=== PATIENT | female | born 1985 | race Hispanic/Latino ===

== ENCOUNTER 2016-10-28 05:39 | Inpatient (IN) | payer MEDICAID ==
[~2016-10-28] VITALS: Ht 149.9 cm; Wt 68.9 kg
[2016-10-28] MEDS ORDERED: Hemorrhage Kit, Post Partum XX ONE (06:10)
[2016-10-28] MEDS ORDERED: Ondansetron 2 mg/mL 2 mL Inj IVPUSH PRN (06:10)
[2016-10-28] MEDS ORDERED: Penicillin G K Inj 5,000,000 UNITS in Dextrose 5% Minibag Plus 100 ML IV ONE (06:10)
[2016-10-28] MEDS ORDERED: Oxytocin 30 Units/500 mL LR 30 UNITS in IV Premix 1 EACH IV PRN (06:10)
[2016-10-28] MEDS ORDERED: Carboprost 250 mCg/mL Inj IM PRN (06:10)
[2016-10-28] MEDS ORDERED: Oxytocin 10 Unit/mL Inj IM PRN (06:10)
[2016-10-28] MEDS ORDERED: Sodium Chloride LOK Flush 10 mL Syringe IVFLUSH PRN (06:10)
[2016-10-28] MEDS ORDERED: Methylergonovine 0.2 mg/mL Inj IM PRN (06:10)
[2016-10-28 06:32] LABS: Mean Corpuscular Hemoglobin 28.8 pg (27.0-35.0); Mean Corpuscular Volume 87.9 fL (81-100)
--- NOTE | 2016-10-28 07:23 | PCM.HPOB ---
Subjective Date of Service: Oct 28, 2016 Referring Provider: Admitting Physician: Roger Rojas MD Primary Care Physician: Nopcp Attending Physician: Roger Rojas MD Chief Complaint premature rupture of membranes History of Present History of Present Illness 31 yo at 35 weeks 1 day gestation [facility] with grossly ruptured membranes. Per nurse cervical examination she is 1 cm dilated, firm, and anterior. She is relaxing and breathing for pain management at this time. OB History: (2), Para (1), Term (1), Living (1) Past Medical History Obstetrical History: at 40 weeks January 2012 5lbs 12oz Hx Tobacco Use: No Genetic Screening/Counseling Genetic Screening/Counseling: Negative Review of Systems Constitutional: Y: Chills, Fever Eyes: Denies: Blurred Vision Cardiovascular: Denies: Chest Pain Respiratory: Denies: Cough Gastrointestinal: Denies: Nausea, Vomiting Neurological: Denies: Dizziness Medications Home medications vitamin Allergy Coded Allergies: No Known Allergies (Unverified , 10/28/16) Exam Vital Signs Stable, normal Constitutional: Well-developed, Well-nourished HEENT: Atraumatic Lungs: Clear to Auscultation, Normal Air Movement Heart: Regular Rate/Rhythm, No Murmurs/Rubs/Gallops Abdomen: Gravid, Soft, No tenderness Extremities: Warm, No Edema Neurological/Psychiatric: Alert, Oriented X3 Neuro: Grossly Neurologically Intact Labs/Diagnostics Labs WBC 5.2 Hgb 11.4 Hct 34.8 Plt 232 Ultra Sound On Oct 10, 2016 gave estimated weight of 2222g (67th percentile) with appropriate interval growth. Lab/Diagnostic Information GBS status unknown. HgA1c 6.1, 1 hour glucose abnormal (156). 3 hour glucose normal. Antibody screen negative, rubella and varicella immune, non reactive HIV and RPR. GC/CT negative, Quad screen negative, Hep C and HBsAg negative. Maternal Blood Type: O (positive) Hx Rho(D) Immune Globulin: No Antibody Screen: negative Group B Strep Results: Not done (35.1 weeks ) Previous Infant with GBS: Unknown Rubella: Immune OB Intrapartum Assessment/Plan Assessment 31 yo with gross premature rupture of membranes. GBS status unknown. HgA1c 6.1, 1 hour glucose abnormal (156). 3 hour glucose normal. Antibody screen negative, rubella and varicella immune, non reactive HIV and RPR. GC/CT negative, Quad screen negative, Hep C and HBsAg negative. Problems: (1) premature rupture of membranes Plan: 35 weeks 1 day gestation. Patient given betamethasone IM, this will be given again at 24 hours if she has not yet delivered. At that time we will continue with augmentation and induction of labor if necessary. Patient is being given penicillin due to GBS status unknown. Status: Acute ICD Code: O42.919 (2) Qualifiers: Weeks of gestation: 35 weeks Qualified Code: Z3A.35 - 35 weeks gestation of Status: Acute ICD Code: Z33.1 Pain Management: Patient does not desire an epidural however it is available if necessary also IV fentanyl as available. Encourage relaxation and breathing for patient. Pain Evaluation: Adequate Pain Control Intrapartum plan Betamethasone every 24 hours 2 IV penicillin Allow labor to progress on its own if necessary induction of labor after second dose of betamethasone. Post plan: Continue routine post care Attending Statement The patient was seen and examined together with Dr. Stinson and I agree with the history, exam and plan as outlined in the note above. JUNG STINSON DO Oct 28, 2016 06:54 Paola Fernandez MD Oct 29, 2016 22:33
[2016-10-28] MEDS ORDERED: PREN1TAB25 PO (07:33)
[2016-10-28] MEDS: Lactated Ringer's 1,000 ML IV PRN ×2 (07:35→16:00)
[2016-10-28] MEDS: Betameth Ace-Betam SodPhos 6 mg/mL 5 mL Inj IM SCH (08:44)
[2016-10-28] MEDS: Penicillin G K Inj 3,000,000 UNITS in IV Premix 1 EACH IV SCH ×2 (12:04→16:00)
[2016-10-28] MEDS: Ampicillin Inj 2,000 MG in 0.9% Sodium Chloride 100 ML IV SCH (20:30)
[2016-10-28] MEDS: Erythromycin Inj 250 MG in 0.9% Sodium Chloride 100 ML IV SCH (21:00)
[2016-10-29] MEDS: Ampicillin Inj 2,000 MG in 0.9% Sodium Chloride 100 ML IV SCH (02:25)
[2016-10-29] MEDS: Erythromycin Inj 250 MG in 0.9% Sodium Chloride 100 ML IV SCH (03:00)
[2016-10-29] MEDS ORDERED: Hemorrhage Kit, Post Partum XX ONE (03:35)
[2016-10-29] MEDS ORDERED: LANOlin HPA 7 Gm Ointment TOPICAL PRN (03:35)
[2016-10-29] MEDS ORDERED: Oxytocin 30 Units/500 mL LR 30 UNITS in IV Premix 1 EACH IV PRN (03:35)
[2016-10-29] MEDS ORDERED: Lactated Ringer's 1,000 ML IV SCH (03:35)
[2016-10-29] MEDS ORDERED: Benzocaine (Dermoplast) 20% 60 Gm Spray TOPICAL PRN (03:35)
[2016-10-29] MEDS ORDERED: oxyCODONE-Acetamin 5-325 mg Tablet PO PRN (03:40)
[2016-10-29] MEDS: Witch Hazel-Glycerin Pads TOPICAL PRN (04:10)
--- NOTE | 2016-10-29 05:14 | OP ---
[address] [address] OPERATIVE REPORT PATIENT: DAVIS DEL REAL : 1985 MR#: [id number] ADMIT: 10/28/2016 JOB ID: [id number] DATE OF SURGERY: 10/29/2016 PREOPERATIVE DIAGNOSIS(ES): 1. labor, intrauterine at 35 weeks and 2 days. 2. Premature rupture of membranes. 3. Group B streptococcus unknown. POSTOPERATIVE DIAGNOSIS(ES): 1. labor, intrauterine at 35 weeks and 2 days, status post spontaneous vaginal delivery. 2. Premature rupture of membranes. 3. Group B streptococcus unknown. PROCEDURE: Spontaneous vaginal delivery. SURGEON: Jeremy Caraballo MD. CURRICULUM DEVELOPMENT COORDINATOR: None. ESTIMATED BLOOD LOSS: 300 mL. PROCEDURE: This is a 31-year-old 2, now para 2, presented at 35 weeks and 1 day with premature rupture of membranes. Time of rupture October 28, 2016, at 5 a.m. Because patient less than 37 weeks of gestation a course of betamethasone was started. The patient received one dose of betamethasone on October 28, 2016, and the plan was to repeat another dose 24 hours later and to be induced 48 hours after the first dose of betamethasone. Antibiotic, broad spectrum, was started for expectant management. Then, patient progressed spontaneously in labor and found to be in active labor on October 29, 2016, at 2:34 a.m. Cervix was 6 cm. Five minutes later, she had an urge to push and she was completely dilated. The patient pushed effectively to deliver via spontaneous vaginal delivery over an intact perineum without epidural. Delivered a female infant in cephalic presentation in occiput anterior position with no nuchal cord. Shoulders delivered without difficulty. The infant was placed on the maternal abdomen. A delayed cord clamp was performed after 1 minute. Apgars at 1 minute were 9, and 5 minutes were 10. Purchasing Specialist was present in the room. The placenta was delivered spontaneously intact with three-vessel cord at 3:04. Time of delivery was 3 a.m. on October 29, 2016. After delivery of the placenta, oxytocin was started and fundal massage was performed, and uterus was firm. Examination of the perineum revealed a second-degree laceration that was repaired with 3-0 Vicryl in the usual manner and with local anesthesia. Infant weight 2467 g. The infant was admitted to the ICU for evaluation for prematurity. Mother is in stable condition and recovering in the delivery room. All instrument, needle and sponge counts were correct x2. IJeremy MD was present and performed the entire delivery. RUSSEL
[2016-10-29] MEDS: Betameth Ace-Betam SodPhos 6 mg/mL 5 mL Inj IM SCH (08:30)
[2016-10-29] MEDS: Ascorbic Acid 500 mg Tablet PO SCH ×2 (11:37→17:45)
[2016-10-30 06:13] LABS: Mean Corpuscular Hemoglobin 28.6 pg (27.0-35.0)
[2016-10-30] MEDS ORDERED: DOCU-41 PO (08:00)
[2016-10-30] MEDS ORDERED: IBUP-1827 PO (08:00)
[2016-10-30] MEDS ORDERED: Ascorbic Acid PO (08:00)
[2016-10-30] MEDS ORDERED: FERR-74 PO (08:00)
--- NOTE | 2016-10-30 08:42 | PCM.PNOBPP ---
Subjective Date of Service Oct 30, 2016 Post : Spontaneous Vaginal Delivery Subjective 31 yo at 35 weeks 1 day gestation presented to [facility] early in the morning of October 28 with grossly ruptured membranes. Betamethasone was started. Patient went into labor on her own. A female infant was born early the morning of October 29 via normal spontaneous vaginal delivery. Infant was taken to the special care nursery due to early gestational age. Mother has been up and about and is seen in the nursery this morning. She attempted to breast-feed and plans to continue to do so she is currently pumping and supplementing with NeoSure. Her pain is controlled with ibuprofen she is meeting post goals and, has no other concerns. Lochia: Normal Pain Management: PO pain meds Gastrointestinal: Good Appetite Postop Activity: Ambulating Independently Group B Strep Results: Not done (35.1 weeks ) Rubella: Immune Blood Type: O (positive) RH Type: Positive Labs Laboratory Tests 10/30/16 05:55: White Blood Count 8.8, Red Blood Count 3.91, Hemoglobin 11.2, Hematocrit 34.4, Mean Corpuscular Volume 88.0, Mean Corpuscular Hemoglobin 28.6, Mean Corpuscular Hemoglobin Concent 32.6, Red Cell Distribution Width 13.8, Platelet Count 208 Exam Vital Signs Vital Signs: VS reviewed, stable Exam Abdomen: Fundus firm, Abdomen non-tender : Voiding without difficulty Extremities: Edema 1+ Lungs: Clear to Auscultation, Normal Air Movement Heart: Regular Rate/Rhythm, No Murmurs/Rubs/Gallops General: Alert, Oriented X3 OB Post Assessment/Plan Assessment 31 yo at 35 weeks 1 day gestation delivered a female infant via normal spontaneous vaginal delivery. She is doing well meaning goals. Pain is well controlled with ibuprofen. Problems: (1) premature rupture of membranes Qualifiers: PROM onset of labor timing: onset of labor within 24 hours of rupture Qualified Code: O42.019 - premature rupture of membranes, onset of labor within 24 hours of rupture, unspecified trimester Plan: 35 weeks 1 day gestation. Patient given single dose betamethasone IM, Patient was given penicillin due to GBS status unknown. Status: Acute ICD Code: O42.919 (2) Qualifiers: Weeks of gestation: 35 weeks Qualified Code: Z3A.35 - 35 weeks gestation of Status: Acute ICD Code: Z33.1 Pain Management: Ibuprofen. Pain Evaluation: Adequate Pain Control Post plan: Continue routine post care, Discharge to [facility] status Attending Statement The patient was seen and examined together with Dr. Jung Stinson DO on 10/30/2016 and I agree with the history, exam and plan as outlined in the note above. JUNG STINSON DO Oct 30, 2016 08:42 Shavon Jordan MD Nov 11, 2016 07:57
--- NOTE | 2016-10-30 08:59 | PCM.DIOB ---
Obstetrical Disch Instruction Date of Service: Oct 30, 2016 Dates of Hospitalization Date of Hospital Admission Oct 28, 2016 at 05:44 Providers Admitting Physician: Roger Rojas MD Primary Care Physician: Karen Attending Physician: Roger Rojas MD Discharge Diagnosis Discharge Diagnosis 1. Normal Spontaneous Vaginal Delivery Post Operative diagnosis 1. Intrauterine at 35 weeks and 2 days. 2. . 3. Premature rupture of membranes. 4. Active labor. 5. Group B streptococcus unknown. Problems: (1) premature rupture of membranes Qualifiers: PROM onset of labor timing: onset of labor within 24 hours of rupture Qualified Code: O42.019 - premature rupture of membranes, onset of labor within 24 hours of rupture, unspecified trimester Plan: 35 weeks 1 day gestation. Patient given single dose betamethasone IM, Patient was given penicillin due to GBS status unknown. Status: Acute ICD Code: O42.919 (2) Qualifiers: Weeks of gestation: 35 weeks Qualified Code: Z3A.35 - 35 weeks gestation of Status: Acute ICD Code: Z33.1 Diet Discharge Diet: No restrictions Activity Discharge Activity-General: Pelvic Rest for 6 weeks, Balance rest and activity Additional Instructions Discharge Instructions Please take the iron and vitamin c together for your anemia. Continue to take your vitamin. You may have constipation so you have also been given a prescription for docusate to keep you regular. Be sure to follow up in 6 weeks at [facility]. Pelvic rest for 6 weeks (nothing per vagina including intercourse, tampons) You may discuss control options at this time If you have a fever greater than 100.4, please call [facility]. There is always someone special education bus driver to talk to. If you have an increase in bleeding, call [facility]. If you have a lot of bleeding suddenly, especially if you have symptoms of dizziness & weakness with it, get emergency help. When you see [facility] in two weeks, you will be informed of the results of all the labs. If you start experiencing extreme depression, especially if you feel that you are a danger to yourself or your family, seek emergency help. You have been through a lot -- BE SURE TO TAKE CARE OF YOURSELF. Follow Up Plan Follow-up Provider (F9): Arunakul,Nikorn R MD Follow-up appointment: Weeks (6) Call your provider for: Fever or Chills, Shortness of breath, Heavy vaginal bleeding, Excessive constipation, Vaginal discomfort, Red painful breasts JUNG STINSON DO Oct 30, 2016 08:59
[2016-10-30] MEDS: Witch Hazel-Glycerin Pads TOPICAL PRN (09:25)
[2016-10-30] MEDS: Ascorbic Acid 500 mg Tablet PO SCH (09:26)
--- NOTE | 2016-10-30 09:39 | PCM.DC.OB ---
Obstetrical Discharge Summary Date of Service Oct 30, 2016 Date of hospital admission Oct 28, 2016 at 05:44 Date of Discharge: Oct 30, 2016 Providers Admitting Physician: Roger Rojas MD Primary Care Physician: Karen Attending Physician: Roger Rojas MD Diagnosis at Time of Discharge 1. Normal Spontaneous Vaginal Delivery Problems: (1) premature rupture of membranes Qualifiers: PROM onset of labor timing: onset of labor within 24 hours of rupture Qualified Code: O42.019 - premature rupture of membranes, onset of labor within 24 hours of rupture, unspecified trimester Plan: 35 weeks 1 day gestation. Patient given single dose betamethasone IM, Patient was given penicillin due to GBS status unknown Status: Acute ICD Code: O42.919 (2) Qualifiers: Weeks of gestation: 35 weeks Qualified Code: Z3A.35 - 35 weeks gestation of Status: Acute ICD Code: Z33.1 Invasive procedures Normal Spontaneous Vaginal Delivery Date of Procedure: Oct 29, 2016 Pathology placenta for premature rupture of membranes Brief History and Physical: 31 yo at 35 weeks 1 day gestation presents to [facility] with grossly ruptured membranes. Per nurse cervical examination she is 1 cm dilated, firm, and anterior. She is relaxing and breathing for pain management at this time. Exam on day of discharge: vital signs stable and normal, well-nourished well- appearing, heart regular rate and rhythm no murmurs, lungs clear to auscultation bilaterally with good air movement. Abdomen soft, uterine fundus firm. +1 edema in bilateral lower extremities. Appropriate mood and affect. Hospital Course: 31 yo at 35 weeks 1 day gestation presented to [facility] early in the morning of October 28 with grossly ruptured membranes. Betamethasone was given. Patient went into labor on her own. A female infant was born early the morning of October 29 via normal spontaneous vaginal delivery. was taken to the special care nursery due to early gestational age. Mother is meeting goals. is doing well. Patient will be discharged to [facility] status in stable condition. ([Ascorbic Acid]) 500 MG TABLET 500 MG PO DAILY Take with Iron Prescribed by: JUNG STINSON DO Docusate Sodium (Colace) 100 Mg Capsule 100 MG PO DAILY PRN PRN For Constipation Prescribed by: JUNG R STINSON, DO Ferrous Sulfate (Feosol) 325 Mg Tablet 325 MG PO DAILY Take with Vitamin C Prescribed by: JUNG STINSON DO Ibuprofen (Ibuprofen) 600 Mg Tablet 600 MG PO Q6H PRN PRN For Mild Pain Prescribed by: JUNG STINSON DO Vit#96/Ferrous Fum/FA ( Tablet) 1 Each Tablet 1 EACH PO DAILY ( Reported) Last Taken: Unknown Dose on 10/26/16 Disposition Discharged to [facility] status Follow-up plan 6 weeks at [facility] Discharge Diet: No restrictions Discharge Activity-General: Pelvic Rest for 6 weeks, Balance rest and activity Patient instructions Please take the iron and vitamin c together for your anemia. Continue to take your vitamin. You may have constipation so you have also been given a prescription for docusate to keep you regular. Be sure to follow up in 6 weeks at [facility]. Pelvic rest for 6 weeks (nothing per vagina including intercourse, tampons) If you have a fever greater than 100.4, please call [facility]. There is always someone component prep operator to talk to. If you have an increase in bleeding, call [facility]. If you have a lot of bleeding suddenly, especially if you have symptoms of dizziness & weakness with it, get emergency help. When you see [facility] in two weeks, you will be informed of the results of all the labs. If you start experiencing extreme depression, especially if you feel that you are a danger to yourself or your family, seek emergency help. You have been through a lot -- BE SURE TO TAKE CARE OF YOURSELF. JUNG STINSON DO Oct 30, 2016 09:05
[2016-10-30 10:42] VITALS: BP 116/59; PULSE 55; RESP 16
--- NOTE | 2016-11-01 14:12 | PATH ---
SURGICAL PATHOLOGY Attending Physician:Jeremy Caraballo CASE STATUS: Signed Out PATIENT NAME: Qian Byers PID: [id number] : 1985 DATE COLLECTED:10/29/2016 15:08 SPECIMEN: Placenta CLINICAL HISTORY: PREMATURE RUPTURE OF MEMBRANE PLACENTA FINAL DIAGNOSIS: 1. Placenta: 430 grams: Negative for evidence of infarction. Negative for significant vascular lesions. Negative for significant inflammation. 2. Umbilical cord: 32.8 cm in length with three normal blood vessels. Negative for significant inflammation. Cord is attached 7.2 cm from the placental edge. 3. membranes: Ruptured at the free placental edge. Negative for significant inflammation. ICD10 O42.02 GROSS DESCRIPTION: The specimen is received in formalin, labeled with the patient's name and consists of an intact placenta and includes placental disc (430 g, 19.7 x 18.5 x 2.5 cm), umbilical cord (length-32.8 cm, diameter-1.6 x 1.4 cm) and membranes. The membranes are ruptured at the free edge of the placenta and are semi-translucent. The umbilical cord is attached 7.2 cm from the edge of the placenta and contains 3 vessels. The surface is smooth and shiny with no evidence of meconium. The maternal surface is dark maroon with normal cotyledon formation. The placental disc is spongy with no hematomas, infarcts, nodules, masses, or lesions. Section code: (A) edge of placenta with membranes, umbilical cord; (B-D) placenta, 3 full thickness sections. 10/29/16 ICD-9 CODES: CPT CODES: 1: 19279 Electronically Signed Out Devaughn Montenegro MD [facility] [address], [place] [address] Technical component performed at [facility], [facility] [address], [place], [address]
== END 2016-10-30 14:37 | disposition home or self-care (01) | DRG 775 ==
LOC: FBCO 05:39 → FBC 05:44
PROVIDERS: ADMIT Obstetrics & Gynecology; ATTEND Obstetrics & Gynecology
PROC: 10E0XZZ Delivery of Products of Conception, External Approach (ICD-10-PCS; principal; 2016-10-29)
PROC: 0KQM0ZZ Repair Perineum Muscle, Open Approach (ICD-10-PCS; 2016-10-29)
DX: O70.1 Second degree perineal laceration during delivery (principal); Z37.0 Single live birth; O42.013 Preterm premature rupture of membranes, onset of labor within 24 hours of rupture, third trimester; Z3A.35 35 weeks gestation of pregnancy